=== PATIENT | female | born 1955 | race Caucasian/White ===

== ENCOUNTER 2018-03-04 01:04 | Outpatient (CLI) | payer BC, SELFPAY ==
--- NOTE | 2018-03-04 14:33 | DI.REPORT_ITS ---
SYMPTOMS/DIAGNOSIS: SCREENING, Z12.31 MAMMOGRAMS: Mammograms were interpreted according to the usual protocol including computer analysis with CAD system, tomosynthesis and C view imaging. Comparison is with the prior examinations. No masses or microcalcifications are seen. There is nothing to suggest malignancy. IMPRESSION: Negative mammogram. Routine screening is recommended. Category 1 , breast density B. MQSA ASSESSMENT OF FINDINGS: Negative. Category 1. Patient will receive a letter notifying them of these results. BI-RADS category B. There are scattered areas of fibroglandular density.
== END 2018-03-04 01:05 ==
PROVIDERS: PCP Nurse Practitioner Family; Visit Provider Nurse Practitioner Family
DX: Z12.31 Encounter for screening mammogram for malignant neoplasm of breast (principal)
CPT/HCPCS: 77063; 77067

== ENCOUNTER 2019-03-22 07:29 | Outpatient (CLI) | payer BC, SELFPAY ==
[2019-03-22 08:22] LABS: Abs Immature Grans 0.01 k/cumm (0.0-0.09); Absolute Basophil Count 0.01 k/cumm (0.0-0.2); Absolute Eosinophil Count 0.12 k/cumm (0.0-0.7); Absolute Monocyte Count 0.45 k/cumm (0.11-0.7); Absolute Neutrophil Count 3.03 k/cumm (1.2-6.7); Basophils % 0.2; Eosinophils % 2.1; HCT 38.3 % (36.0-46.0); HGB 12.4 g/dL (12.0-15.5); Immature Grans % 0.2; Lymphocytes % 37.8; Mean Corp. HGB Concentration 32.4 g/dL (32.0-36.0); Mean Corpuscular Hemoglobin 29.8 pg (27.0-33.0); Mean Corpuscular Volume 92.1 fL (80-95); Mean Platelet Volume 10.1 fL (8.0-11.0); Monocytes % 7.7; Platelet Count 271 x1000/uL (130-400); RBC 4.16 m/cumm (4.00-5.20); RBC Distribution Width 12.6 % (11.7-14.6); White Blood Cell Count 5.82 k/cumm (4.4-10.8)
[2019-03-22 09:17] LABS: Iron 63 ug/dL (50-175); Total Iron Binding Capacity 297 ug/dL (250-450); Transferrin Sat 21 % (15-50)
[2019-03-22 09:30] LABS: BUN 19 mg/dL (7-18); CREATININE 0.86 mg/dL (0.55-1.02); Calcium 8.5 mg/dL (8.5-10.1); Chloride 107 mmol/L (98-107); Glucose 92 mg/dL (70-100); Potassium 4.4 mmol/L (3.5-5.1); Sodium 143 mmol/L (136-145); TSH (W/Ref FT4) 0.68 uIU/mL (0.36-3.74)
[2019-04-03 14:56] LABS: Misc Referral (MAYO) See Comments
== END 2019-03-22 07:49 ==
PROVIDERS: PCP Nurse Practitioner Family; Visit Provider Nurse Practitioner Family
DX: Z00.00 Encounter for general adult medical examination without abnormal findings (principal); E78.5 Hyperlipidemia, unspecified; G47.62 Sleep related leg cramps; R51 Headache; R53.1 Weakness; R06.02 Shortness of breath; M54.5 Low back pain; R00.2 Palpitations; R06.00 Dyspnea, unspecified; R42 Dizziness and giddiness
CPT/HCPCS: 36415; 80048; 83825; 83540; 83550; 83735; 84443; 85025

== ENCOUNTER 2019-04-17 00:25 | Outpatient (CLI) | payer BC, SELFPAY ==
--- NOTE | 2019-04-17 10:40 | DI.MAMMO_ITS ---
EXAM: MAMMO SCREENING CLINICAL HISTORY: SCREENING, Z12.31, PREVENTATIVE CARE, Z00.00. TECHNIQUE: Mammograms were interpreted according to the usual protocol including computer analysis w ith CAD system, tomosynthesis and C-view imaging. COMPARISON: No exams were available for comparison FINDINGS: The breast tissue is heterogeneously radiodense which limits the sensitivity of the study. There is n o dominant mass. There are no suspicious calcifications. IMPRESSION: No evidence of malignancy, Category 1. Breast density Category C. BI-RADS Cat 1 - Negative Breast Density - Category C - Heterogeneously dense
== END 2019-04-17 00:45 ==
PROVIDERS: PCP Nurse Practitioner Family; Visit Provider Nurse Practitioner Family
DX: Z00.00 Encounter for general adult medical examination without abnormal findings (principal); Z12.31 Encounter for screening mammogram for malignant neoplasm of breast
CPT/HCPCS: 77063; 77067

== ENCOUNTER 2019-06-12 06:13 | Day surgery (SDC) | payer BC, SELFPAY ==
[2019-06-12 06:33] VITALS: BP 114/71; PULSE 67; RESP 16; TEMP 36.6; O2SAT 100
--- NOTE | 2019-06-12 06:33 | W.COLOREPORT ---
Date of service: 06/12/19 Time of Service: 07:37 Colonoscopy Report Date of procedure: 06/12/19 Pre-op diagnosis general: Colon Cancer Screening Post-op diagnosis procedure note: other (Colorectal polyps) Procedure: Colonoscopy with polypectomy by cold forceps Surgeon: Sophia Cordero Anesthesia proc note operative: other (General/ ASA 2/Celeste Yanez, CHICHI) Estimated blood loss (mL): 3 Pathology: other (Rectal polyps x3) Complications: None Disposition: same day Indications: Mrs. Anderson is a pleasant 63 year old female seen in the office for a screening colonoscopy. Her last Colonoscopy was over 10 years ago and was normal. Risks, benefits and complications have been reviewed. Complications include but are not limited to bleeding, pain, perforation, missed small lesion/polyp, sore throat, aspiration and adverse reaction to the medications. Questions were entertained and answered to their satisfaction and they wished to proceed. No guarantees were given or implied. Prep: Miralax/Dulcolax Procedure Start Time: :37 Procedure End Time: 08:06 Retraction Time: 21 minutes Findings: 3 sessile polyps in the rectum. Procedure Description: After informed consent was obtained the patient was taken to the procedure room and placed in a left decubitous position. Monitors were applied and a time out was done. The patients name, date of , procedure, allergies to medications and metal in their body was reviewed. The patient was then sedated. Once sedated and comfortable a rectal exam was done. External exam was normal. Internal exam revealed a normal sphincter tone and no palpable masses. The scope was then introduced and retro-flexed. No internal hemorrhoids, masses or polyps were identified on retro-flexion. The scope was then advanced to the cecum without difficulty. The TI and appendiceal orifice were identified. The prep was good. The scope was then slowly retracted over 21 minutes back into the rectum. Polyps were removed with cold forceps in the rectum x3. There were no Diverticula noted. The scope was removed and the patient was woken up and taken back to Same day surgery in stable condition. The patient tolerated the procedure well and there were no immediate complications. Follow up: The patient should follow up in 3-5 years unless they develop changes in bowel habits or other new gastrointestinal complaints.
--- NOTE | 2019-06-12 06:35 | W.PM.DSUDISC ---
Discharge Plan Disposition Patient Disposition: HOME Condition: Good Discharge Details Reason For Visit: Colon Cancer Screening Attending Provider: Sophia Cordero Primary Care Provider: Gisela Puri Home Meds and New Rx's Prescriptions: Discontinued polyethylene glycol 3350 17 gram/dose powder 238 g PO ONCE Qty: 238 RF: 0 bisacodyl [Dulcolax (bisacodyl)] 5 mg tablet,delayed release (DR/EC) 5 mg PO ONCE Qty: 4 RF: 0 Discharge Instructions Instructions: Colonoscopy (DC), Colorectal Polyps (DC) Additional Instructions: Findings: 3 small polyps Follow up: 3-5 years depending on final pathology Please call if you develop: fevers >101.5 Nausea or Vomiting Abdominal pain that is not transient DAY SURGERY UNIT POST ENDOSCOPY INSTRUCTIONS 1. Because there will be medication in your system for the next 24 hours, you may feel a little sleepy. Your coordination will be affected. Therefore: a. Do not drive or operate dangerous equipment for 24 hours. b. Do not drink alcohol beverages for 24 hours (not even beer). c. Plan to go home and rest for the day. 2. Generally there are no restrictions on your activity after a day or so has gone by, but you may feel a bit fatigued for a few days. 3 After you arrive home you may have a light meal and return to a normal diet as you can tolerate it without feeling sick to your stomach. 4. After surgery, you may feel pain or discomfort. This should be only transient, but if it persists please contact your doctor. 5. If there are any questions regarding the findings of your procedure, please feel free to contact your doctor. 6. If you are unable to contact your doctor with a problem, contact the hospital at [phone]. 7. Continue all your regular medications unless directed otherwise. I understand the above instructions and have no questions. Signature of Patient or Responsible Adult Escort Date/Time Name of Responsible Adult Escort Signature of Nurse Date/Time Activity:: Activity as Tolerated Diet:: As Tolerated Discharge Orders Discharge Orders: Discharge Order (Routine); Ordered 06/12/19 Ordered By: Sophia Cordero DS: Diagnosis Discharge Diagnosis (1) S/P colonoscopy: Status: Acute (2) Colorectal polyps: Status: Acute
[2019-06-12] MEDS: Lactated Ringers 1,000 ML 80 ML IV (07:19)
--- NOTE | 2019-06-12 08:00 | BOWEL_PTH ---
PATIENT: Britany Anderson LOC: [facility] U#:[id number] AGE/SX: 63/F ROOM: RE06/12/[address]: Sophia Cordero MD : 1955 BED: DIS: 06/12/2019 SPEC #: [id number] RECD: 06/12/19 11:32 STATUS: JOSIAH REQ #: [id number] LAURA: 06/12/19 08:[address]: Sophia Cordero DEPT: Surgical Specimen RECD BY: Madalyn Ronquillo ENTERED: 06/12/19 11:32 SP TYPE: Bowel OTHR DR: Gisela Puri Tissues: 1 - BIOPSY BOWEL Procedures: GROSS AND MICRO LEVEL 4 Comments: [id number]
[2019-06-12 08:45] VITALS: BP 94/51; PULSE 57; RESP 18; TEMP 36.3; O2SAT 99
== END 2019-06-12 09:15 | disposition home or self-care (01) ==
PROVIDERS: PCP Nurse Practitioner Family; Visit Provider Surgery
PROC: 0DJD8ZZ Inspection of Lower Intestinal Tract, Via Natural or Artificial Opening Endoscopic (ICD-10-PCS; CPT 45378; principal; 2019-06-12 07:30)
DX: Z12.11 Encounter for screening for malignant neoplasm of colon (principal); K62.1 Rectal polyp
CPT/HCPCS: 45380; 88305

== ENCOUNTER 2020-01-24 12:47 | Outpatient (REF) | payer BC, SELFPAY ==
[2020-01-24 22:02] LABS: HGB 12.9 g/dL (12.0-15.5); Mean Corp. HGB Concentration 32.3 g/dL (32.0-36.0); Mean Corpuscular Hemoglobin 29.7 pg (27.0-33.0); Mean Corpuscular Volume 92.2 fL (80-95); Mean Platelet Volume 10.8 fL (8.0-11.0); Platelet Count 276 x1000/uL (130-400); RBC 4.34 m/cumm (4.00-5.20); RBC Distribution Width 12.9 % (11.7-14.6)
[2020-01-24 22:15] LABS: ALT 20 U/L (14-59); AST 14 U/L (15-37); Albumin 3.8 g/dL (3.4-5.0); Alkaline Phosphatase 54 U/L (46-116); Anion Gap 8.2 mmol/L (3-11); BUN 16 mg/dL (7-18); Bilirubin, Total 0.3 mg/dL (0.2-1.0); CO2 27.8 mmol/L (21.0-32.0); CREATININE 0.95 mg/dL (0.55-1.02); Calcium 9.2 mg/dL (8.5-10.1); Calculated LDL 167 mg/dL (<100); Chloride 105 mmol/L (98-107); Cholesterol 248 mg/dL (<200); Estimated GFR 59.41 (mL/min/1.73m2); Glucose 99 mg/dL (74-106); HDL Cholesterol 63 mg/dL (40-60); Potassium 5.1 mmol/L (3.5-5.1); Sodium 141 mmol/L (136-145); Total Protein 6.6 g/dL (6.4-8.2); Triglyceride 92 mg/dL (<150)
== END 2020-01-24 13:07 ==
LOC: NCHCN 12:47
PROVIDERS: PCP Nurse Practitioner Family; Visit Provider Nurse Practitioner Family
DX: Z00.00 Encounter for general adult medical examination without abnormal findings (principal); E78.5 Hyperlipidemia, unspecified
CPT/HCPCS: 80053; 80061; 85027

== ENCOUNTER 2020-03-15 15:39 | Outpatient (REF) | payer BC, SELFPAY ==
[2020-03-15 22:28] LABS: Abs Immature Grans 0.02 10^3/uL (0.0-0.06); Absolute Basophil Count 0.02 10^3/uL (0.0-0.2); Absolute Eosinophil Count 0.08 10^3/uL (0.0-0.7); Absolute Monocyte Count 0.38 10^3/uL (0.1-0.8); Basophils % 0.3; Eosinophils % 1.3; HCT 43.6 % (36.0-46.0); Immature Grans % 0.3; Lymphocytes % 37.5; MCH 29.3 pg (27.0-33.0); MCHC 32.1 % (32.0-36.0); MCV 91.2 fL (80-95); MPV 10.5 fL (8.0-11.0); Monocytes % 5.9; Neutrophils % 54.7; Nucleated RBC 0 %; Platelet Count 314 10^3/uL (130-400); RBC 4.78 10^6/uL (3.93-5.22); RDW 12.1 % (11.7-14.6); RDW-SD 40.5 fL
[2020-03-15 22:32] LABS: Iron 100 ug/dL (50-170); Total Iron Binding Capacity 347 ug/dL (250-450); Transferrin Sat 29 % (15-50)
[2020-03-15 23:09] LABS: ALT 17 U/L (14-59); AST 16 U/L (15-37); Albumin 4.3 g/dL (3.4-5.0); Alkaline Phosphatase 65 U/L (46-116); Anion Gap 9.3 mmol/L (3-11); BUN 15 mg/dL (7-18); Bilirubin, Total 0.4 mg/dL (0.2-1.0); CO2 28.7 mmol/L (21.0-32.0); CREATININE 0.77 mg/dL (0.55-1.02); Calcium 9.4 mg/dL (8.5-10.1); Chloride 102 mmol/L (98-107); Glucose 90 mg/dL (74-106); Magnesium 2.2 mg/dL (1.8-2.4); Potassium 4.3 mmol/L (3.5-5.1); Sodium 140 mmol/L (136-145); TSH 0.67 uIU/mL (0.36-3.74); Total Protein 7.5 g/dL (6.4-8.2); Vitamin B12 369 pg/mL (193-986)
[2020-03-15 23:26] LABS: ESR 19 mm/hr (0-30)
[2020-03-15 23:34] LABS: C-Reactive Protein 0.16 mg/dL (0.0-0.3); FREE T4 1.03 ng/dL (0.76-1.46)
[2020-03-17 17:49] LABS: T3,Free 3.2 pg/mL (2.8-5.3)
[2020-03-18 14:41] LABS: ANA Interpretation Positive (Negative); ANA Titer Pattern 1:160 Homogeneous
== END 2020-03-15 15:59 ==
LOC: NCHCN 15:39
PROVIDERS: PCP Nurse Practitioner Family; Visit Provider Nurse Practitioner Family
DX: R42 Dizziness and giddiness (principal); R20.2 Paresthesia of skin; R53.1 Weakness
CPT/HCPCS: 80053; 85652; 82607; 83540; 83550; 83735; 84439; 84443; 84481; 85025; 86038; 86140

== ENCOUNTER 2020-03-27 17:08 | Outpatient (REF) | payer BC, SELFPAY ==
[2020-04-02 13:20] LABS: dsDNA Ab, IgG <12.3 IU/mL (<30.0)
[2020-04-05 16:07] LABS: SS-A Antibody 1.6 Units (<20.0); SS-B (La) Ab, IgG 1.4 Units (<20.0); Sm (Smith) Ab, IgG 1.7 Units (<20.0)
== END 2020-03-27 17:28 ==
LOC: NCHCN 17:08
PROVIDERS: PCP Nurse Practitioner Family; Visit Provider Nurse Practitioner Family
DX: R76.0 Raised antibody titer (principal)
CPT/HCPCS: 86225; 86235

== ENCOUNTER 2020-04-18 05:45 | Emergency (ER) | payer BC, SELFPAY ==
[2020-04-18 05:52] VITALS: BP 127/87; PULSE 99; RESP 16; TEMP 36.5; O2SAT 98
--- NOTE | 2020-04-18 06:04 | ED.GENADUL_ITS ---
Discharge Plan Disposition Patient Disposition: HOME Condition: Good Discharge Details Clinical Impression: Insomnia, Anxiety Primary Care Provider: Gisela Puri ED Provider: Chad Jerry Home Meds and New Rx's Prescriptions: No Action No Known Home Meds RF: 0 Discharge Instructions Additional Instructions: You may try clnl-[id number] medication for sleep like diphenhydramine or melatonin. Otherwise, you should discuss your problems with insomnia and the anxiety related to your recent diagnosis with primary care. They would be who should be managing prescription medications for sleep or anxiety if needed. Referrals: Gisela Puri [Primary Care Provider] - Medical Decision Making I did review the notes from her neurology visit. 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 Even neurology's note documented how overwhelming this seemed to patient. Unfortunately, prescribing anxiolytics or sleeping medication should be something primary care is involved in. She goes to [facility]. She has not spoken to them since her diagnosis with neurology. I discussed the need for her to do this. She may try tlpu-pdq-tixjmey medications such as melatonin or diphenhydramine for sleep. If she wants prescription medication this really should be handled through primary care. Return to ED for fever, cough, unsafe feelings, chest pain, other concerns. Medical Records Medical records reviewed: Yes I reviewed the patient's medical records. HPI General Mode of arrival: ambulatory . Date/Time Provider Initiated Documentation: 04/18/20 05:53 . Limitations to Documentation: no limitations . Information obtained by: patient, RN notes reviewed and old records reviewed . HPI Narrative: Patient presents to ED with complaint of insomnia and anxiety since receiving ba d news from neurology on the . She has been very concerned about this diagnosis. She was unable to sleep last night at all. She feels anxious and short of breath but denies any fever, cough, chest pain, vomiting. She did not call primary care since her visit with neurology. She has not tried anything [id number]. She came to ED this morning hoping to have something prescribed for sleep. Related Data Home Medications Medication Instructions Recorded Confirmed Unknown [No Known Home Meds] 04/18/20 04/18/20 Allergies Allergy/AdvReac Type Severity Reaction Status Date / Time No Known Allergies Allergy Unverified 04/15/20 11:13 General Stated Complaint: Anxiety KEELY: 5 Review of Systems Constitutional Constitutional: Denies chills and Denies fever(s) Cardiovascular Cardiovascular: Denies chest pain and Reports dyspnea Respiratory Respiratory: Denies cough and Reports dyspnea Psychiatric Psychiatric: Reports anxiety [facility] Medical History Chronic sinusitis Dyspepsia Frequent headaches Hip pain, bilateral History of postoperative nausea and vomiting Hyperlipidemia Insomnia Low back pain Nocturnal leg cramps Pain of left thumb Palpitations Seasonal allergies TMJ tenderness Surgical History History of discectomy neck S/P colonoscopy (~06/12/19) normal colo >10 years ago Family History Mother Diabetes Rheumatoid arthritis Father Heart disease Brother Heart disease Brother Diabetes Social History Smoking/Tobacco Use Status: Never Alcohol Intake: current Alcohol Intake frequency: a few times a week Alcohol type: wine and hard liquor Drug use: Never Substance use type: does not use Household members: spouse Housing: house current occupation: cnc lathe machinist Pets and animals: Yes Pets and animals: dog(s) Current gender identity: female What is your relationship status?: Panel score (0-1 are the most socially isolated patients): 1 What type of physical activity do you participate in: none Seatbelt use: always Do you feel safe at home: Yes Do you feel safe in your relationship?: Yes Exam Narrative Exam Narrative: Vitals: Afebrile with normal vitals normal room air pulse ox. Const: WDWN female in NAD. HEENT: NC/AT. Normal facial exam. Eyes: Normal conjunctiva and sclera. Neck: Supple. Trachea midline. Lungs: Normal respiratory effort. Lungs are clear. Cor: RRR without murmur/gallop. Neuro: A+O x 3. Normal speech, mentation. No gross motor or sensory deficit. Psych: Appears outwardly calm but describes anxiety and insomnia regarding potential diagnosis she received this week. Course Vital Signs Vital signs: Vital Signs Temperature 97.7 F 04/18/20 05:52 Pulse 99 H 04/18/20 05:52 Respiratory Rate 16 04/18/20 05:52 Blood Pressure 127/87 04/18/20 05:52 Pulse Oximetry 98 04/18/20 05:52 Temperature 97.7 F 04/18/20 05:52 Temperature Source Skin 04/18/20 05:52 Pulse 99 H 04/18/20 05:52 Respiratory Rate 16 04/18/20 05:52 Respiratory Effort Non-Labored 04/18/20 05:58 Blood Pressure 127/87 04/18/20 05:52 Blood Pressure Position Sitting 04/18/20 05:52 Pulse Oximetry 98 04/18/20 05:52 Oxygen Delivery Method Room Air 04/18/20 05:52 Oxygen Flow Rate 0 04/18/20 05:52 Pain Level 0 04/18/20 05:52
== END 2020-04-18 06:10 | disposition home or self-care (01) ==
PROVIDERS: Emergency Provider Emergency Medicine; PCP Nurse Practitioner Family
DX: G47.09 Other insomnia (principal); F41.9 Anxiety disorder, unspecified
CPT/HCPCS: 99282; 99283

== ENCOUNTER 2020-05-20 18:57 | Outpatient (REF) | payer BC, SELFPAY ==
[2020-05-22 11:31] LABS: Lyme Ab w Rflx to Lyme Confirm Negative (Negative)
== END 2020-05-20 19:17 ==
LOC: NCHCN 18:57
PROVIDERS: PCP Nurse Practitioner Family; Visit Provider Internal Medicine
DX: R53.1 Weakness (principal)
CPT/HCPCS: 86618

== ENCOUNTER 2020-08-22 13:22 | Outpatient (REF) | payer BC, SELFPAY ==
[2020-08-22 20:21] LABS: COVID-19 RT-PCR UVMMC Result Negative (Negative)
== END 2020-08-22 13:42 ==
LOC: NCHCN 13:22
PROVIDERS: PCP Nurse Practitioner Family; Visit Provider Nurse Practitioner Family
DX: Z20.822 Contact with and (suspected) exposure to COVID-19 (principal)
CPT/HCPCS: U0003

== ENCOUNTER 2020-10-14 15:03 | Outpatient (REF) | payer BC, SELFPAY ==
[2020-10-15 15:15] LABS: COVID-19 RT-PCR UVMMC Result Negative (Negative)
== END 2020-10-14 15:04 | disposition home or self-care (01) ==
LOC: NCHCN 15:03
PROVIDERS: PCP Nurse Practitioner Family; Visit Provider Nurse Practitioner Family
DX: Z20.822 Contact with and (suspected) exposure to COVID-19 (principal)
CPT/HCPCS: U0003

== ENCOUNTER 2020-11-25 16:20 | Outpatient (REF) | payer BC, SELFPAY ==
[2020-11-25 21:16] LABS: Anion Gap 10.1 mmol/L (3-11); BUN 19 mg/dL (7-18); CO2 27.9 mmol/L (21.0-32.0); CREATININE 0.7 mg/dL (0.55-1.02); Calcium 8.9 mg/dL (8.5-10.1); Chloride 105 mmol/L (98-107); Glucose 88 mg/dL (74-106); Magnesium 1.9 mg/dL (1.8-2.4); Potassium 4.2 mmol/L (3.5-5.1); Sodium 143 mmol/L (136-145); TSH (W/Ref FT4) 0.36 uIU/mL (0.36-3.74)
== END 2020-11-25 16:21 | disposition home or self-care (01) ==
LOC: NCHCN 16:20
PROVIDERS: PCP Nurse Practitioner Family; Visit Provider Nurse Practitioner Family
DX: Z00.00 Encounter for general adult medical examination without abnormal findings (principal); E78.5 Hyperlipidemia, unspecified; G47.62 Sleep related leg cramps; R42 Dizziness and giddiness; R00.2 Palpitations; F41.8 Other specified anxiety disorders
CPT/HCPCS: 80048; 83735; 84443

== ENCOUNTER 2020-12-04 02:10 | Outpatient (CLI) | payer BC, SELFPAY ==
--- NOTE | 2020-12-04 09:25 | DI.MAMMO_ITS ---
Exam(s) MAMMO SCREENING EXAM: MAMMO SCREENING CLINICAL HISTORY: SCREENING, Z12.39. TECHNIQUE: Bilateral full field digital CC and MLO mammographic images were obtained with 3D tomosyn thesis and utilizing computer aided detection (CAD). COMPARISON: Prior mammograms dating back to 1011, the most recent being March 2019. FINDINGS: Asymmetric density in left breast is unchanged from prior studies. No new significant left breast fi ndings In the right breast there are asymmetric densities both medially and laterally which are somewhat mor e evident on prior studies. Spot compression view and ultrasound recommended. No malignant-appearing microcalcification groups in this region or elsewhere in either breast. There is no significant architectural distortion nor skin thickening-retraction. IMPRESSION: 1. No radiographic evidence of malignancy in left breast. 2. Right breast asymmetric nodular densities both medial and laterally. Spot compression CC views vinayak th medial and laterally recommended. Also recommend complete right breast ultrasound. BI-RADS Category 0 - Assessment Incomplete: Need additional imaging evaluation Breast Density - Category B - Scattered areas of fibroglandular density Breast density Category C or D implies that the patient has dense breast tissue. Dense breast tissue can make it harder to find cancer on a mammogram. Dense breast tissue is also associated with an incr eased risk of breast cancer. This information about the result of the mammogram report was provided to the patient to raise their awareness. Use this report when you speak with the patient about their risks for breast cancer, which includes their family history. At that time, you may recommend additional screening tests (Ultrasoun d or MRI) as these tests may add significant information. A negative radiographic report should not delay biopsy if a dominant or clinically suspicious mass is present. Up to ten percent of cancers are not identified on mammography. A negative report may reinforce clinical impression. Adenosis and dense breasts may obscure an underlying neoplasm. False positive reports average 6 to 10%. Patient will receive a letter notifying them of these results.
== END 2020-12-04 02:30 ==
PROVIDERS: PCP Nurse Practitioner Family; Visit Provider Nurse Practitioner Family
DX: Z12.31 Encounter for screening mammogram for malignant neoplasm of breast (principal); R92.8 Other abnormal and inconclusive findings on diagnostic imaging of breast
CPT/HCPCS: 77063; 77067

== ENCOUNTER 2020-12-11 01:12 | Outpatient (CLI) | payer BC, SELFPAY ==
--- NOTE | 2020-12-11 | DI.US_ITS ---
Exam(s) MG MAMMO SCREEN CALL BACK UNI US BREAST RT COMPLETE EXAM: MG MAMMO SCREEN CALL BACK UNI RIGHT AND COMPLETE RIGHT BREAST ULTRASOUND CLINICAL HISTORY: F/U MAMMO, RT BREAST ASYMMETRIC DENSITIES. TECHNIQUE: Unilateral spot mammographic images OF THE RIGHT BREAST were obtained with 3D tomosynthes is and utilizing computer aided detection (CAD). . RIGHT COMPLETE breast Ultrasound was also performed. COMPARISON: Prior mammograms were reviewed. This additional imaging was performed due to findings described on the recent screening mammogram of 12/04/2020. Prior ultrasound 2017 was reviewed FINDINGS: Additional mammographic views performed today dissipate the nodular density medially in the right kyle ast. With respect to the nodular density laterally in the right breast it appears to be smaller on s pot compression view but does not completely dissipate We therefore proceeded with complete right breast ultrasound today. Ultrasound performed today reveals no significant findings in the medial quadrants. At 7 o'clock position there is a 3 x 3 millimeter finding which has appearance of a small hemorrhagic microcyst. At the 8 o'clock position there is a well-defined wider than taller 5 by 4 millimeter finding which i s probably hemorrhagic microcyst. At 10 o'clock position there is a 5 x 3 millimeter finding which is also probably hemorrhagic microcy st. There are no focal findings in the immediate retroareolar region. Right axilla is negative for significant adenopathy. IMPRESSION: Three findings as described above in the right breast. Appropriate follow-up is repeat right breast ultrasound in 3 months. At that time this patient should also undergo complete ultrasound examination of the opposite-breast.. The patient was informed of these findings and recommendations prior to leaving the department today. BI-RADS Category 3 - 3 month - Probably Benign Finding: Recommend follow-up bilateral breast ULTRASOU ND in 3 months Breast Density - Category C - Heterogeneously dense Breast density Category C or D implies that the patient has dense breast tissue. Dense breast tissue can make it harder to find cancer on a mammogram. Dense breast tissue is also associated with an incr eased risk of breast cancer. This information about the result of the mammogram report was provided to the patient to raise their awareness. Use this report when you speak with the patient about their risks for breast cancer, which includes their family history. At that time, you may recommend additional screening tests (Ultrasoun d or MRI) as these tests may add significant information. A negative radiographic report should not delay biopsy if a dominant or clinically suspicious mass is present. Up to ten percent of cancers are not identified on mammography. A negative report may reinforce clinical impression. Adenosis and dense breasts may obscure an underlying neoplasm. False positive reports average 6 to 10%. Patient will receive a letter notifying them of these results. At the
== END 2020-12-11 01:32 ==
PROVIDERS: PCP Nurse Practitioner Family; Visit Provider Nurse Practitioner Family
DX: Z13.21 Encounter for screening for nutritional disorder (principal); R92.8 Other abnormal and inconclusive findings on diagnostic imaging of breast; N60.11 Diffuse cystic mastopathy of right breast
CPT/HCPCS: 76642; 77063; 77067

== ENCOUNTER 2022-02-20 15:07 | Outpatient (REF) | payer BC, SELFPAY ==
--- NOTE | 2022-02-20 10:45 | PAPFT_PTH ---
PATIENT: Britany Anderson LOC: [facility]#:[id number] AGE/SX: 66/F ROOM: RE02/20/[address]: Gisela Puri : 1955 BED: DIS: 02/20/2022 SPEC #: [id number] RECD: 02/20/22 17:26 STATUS: JOSIAH REAndie #: [id number] LAURA: 02/20/22 10:[address]: Gisela Puri DEPT: [facility] Cytology RECD BY: Joan Russell Tissues: 1 - CX/ENDOCX FOR PAP SMEARS Procedures: PAP THIN PREP/UVM Screening HPV DNA PROBE Comments: [id number]
[2022-02-20 16:08] LABS: Abs Immature Grans 0.01 10^3/uL (0.0-0.06); Absolute Basophil Count 0.02 10^3/uL (0.0-0.2); Absolute Eosinophil Count 0.07 10^3/uL (0.0-0.7); Absolute Lymphocyte Count 2.59 10^3/uL (1.2-3.4); Absolute Neutrophil Count 3.26 10^3/uL (1.2-6.7); Basophils % 0.3; Eosinophils % 1.1; HCT 39.9 % (36.0-46.0); Immature Grans % 0.2; Lymphocytes % 40.2; MCH 29.6 pg (27.0-33.0); MCHC 32.6 % (32.0-36.0); MCV 91 fL (80-95); MPV 10.4 fL (8.0-11.0); Monocytes % 7.8; Neutrophils % 50.4; Platelet Count 284 10^3/uL (130-400); RBC 4.39 10^6/uL (3.93-5.22); RDW 12.2 % (11.7-14.6); RDW-SD 40.3 fL; WBC 6.45 10^3/uL (4.4-10.8)
[2022-02-20 16:41] LABS: Anion Gap 7.8 mmol/L (3-11); BUN 14 mg/dL (7-18); CO2 28.2 mmol/L (21.0-32.0); CREATININE 0.8 mg/dL (0.55-1.02); Calcium 8.9 mg/dL (8.5-10.1); Calculated LDL 183 mg/dL (<100); Chloride 105 mmol/L (98-107); Cholesterol 265 mg/dL (<200); Ferritin 206 ng/mL (8-252); Glucose 93 mg/dL (74-106); HDL Cholesterol 67 mg/dL (40-60); Magnesium 1.9 mg/dL (1.8-2.4); Potassium 4.7 mmol/L (3.5-5.1); Sodium 141 mmol/L (136-145); Triglyceride 75 mg/dL (<150)
[2022-02-20 17:30] LABS: Iron 97 ug/dL (50-170); Total Iron Binding Capacity 335 ug/dL (250-450); Transferrin Sat 29 % (15-50)
== END 2022-02-20 15:08 | disposition home or self-care (01) ==
LOC: NCHCN 15:07
PROVIDERS: PCP Nurse Practitioner Family; Visit Provider Nurse Practitioner Family
DX: Z00.00 Encounter for general adult medical examination without abnormal findings (principal); G47.62 Sleep related leg cramps; R42 Dizziness and giddiness; G20 Parkinson's disease; F41.8 Other specified anxiety disorders; R00.2 Palpitations; Z12.4 Encounter for screening for malignant neoplasm of cervix; Z01.419 Encounter for gynecological examination (general) (routine) without abnormal findings; Z13.220 Encounter for screening for lipoid disorders; Z11.51 Encounter for screening for human papillomavirus (HPV)
CPT/HCPCS: 80048; 80061; 88142; 82728; 83540; 83550; 83735; 84443; 85025; 87624

== ENCOUNTER → 2022-04-24 00:28 | Outpatient (CLI) | payer BC, SELFPAY ==
--- NOTE | 2022-04-24 11:23 | DI.DEXA_ITS ---
Exam(s) XR DEXA BONE DENSITY W/WO GUILHERME EXAM: XR DEXA BONE DENSITY W/WO GUILHERME CLINICAL HISTORY: ASYMPTOMATIC POSTMENOPAUSAL STATE, Z78.0 TECHNIQUE: COMPARISON: No exams were available for comparison FINDINGS: DEXA scan was performed according to the usual protocol. Please see the accompanying data sheets. Findings for left hip scanning are T-score -1.1 with left femoral neck T-score -2.6. Lumbar spine scanning shows T-score -2.5. Left forearm scanning shows T-score -2.3. IMPRESSION: Measurements are consistent with osteoporosis according to the WHO criteria. The lateral vertebral scanogram shows no evidence of a vertebral compression fracture. RADIATION DOSE DELIVERED: Total DLP
--- NOTE | 2022-04-24 11:45 | DI.MAMMO_ITS ---
Exam(s) MAMMO SCREENING EXAM: MAMMO SCREENING CLINICAL HISTORY: SCREENING, 12.39 TECHNIQUE: Mammograms were interpreted according to the usual protocol including computer analysis w Er[employer] CAD system, tomosynthesis and C-view imaging. COMPARISON: FINDINGS: The breasts are with call heterogeneously dense. No dominant mass or clumped microcalcification iden tified in either breast. The current examination is compared with previous examinations including Ma y 2020 and there has been no gross interval change in appearance in comparison with the prior studies . IMPRESSION: No specific evidence of malignancy at this time. Routine screening examinations are suggested at yea rly intervals in this age group according to the ACS ACR guidelines. BI-RADS Category 1 - Negative Breast Density - Category C - Heterogeneously dense
== END ==
PROVIDERS: PCP Nurse Practitioner Family; Visit Provider Nurse Practitioner Family
DX: Z13.820 Encounter for screening for osteoporosis (principal); M81.0 Age-related osteoporosis without current pathological fracture; Z12.31 Encounter for screening mammogram for malignant neoplasm of breast; R92.8 Other abnormal and inconclusive findings on diagnostic imaging of breast
CPT/HCPCS: 77063; 77067; 77080

== ENCOUNTER 2023-02-22 16:44 | Outpatient (REF) | payer BC, SELFPAY ==
[2023-02-22 22:03] LABS: Vitamin D 25 Total 18.7 ng/mL (30-100)
== END 2023-02-22 16:45 | disposition home or self-care (01) ==
LOC: NCHCN 16:44
PROVIDERS: PCP Nurse Practitioner Family; Visit Provider Nurse Practitioner Family
DX: M81.0 Age-related osteoporosis without current pathological fracture (principal); R42 Dizziness and giddiness; M54.59 Other low back pain
CPT/HCPCS: 82306

== ENCOUNTER → 2023-04-27 00:38 | Outpatient (CLI) | payer BC, SELFPAY ==
--- NOTE | 2023-04-27 | DI.MAMMO_ITS ---
Exam(s) MAMMO SCREENING EXAM: MAMMO SCREENING CLINICAL HISTORY: SCREENING MAMMO FOR BREAST CANCER Z12.39 TECHNIQUE: Mammograms were interpreted according to the usual protocol including computer analysis w [employer] CAD system, tomosynthesis and C-view imaging. COMPARISON: 2012 through 2021 FINDINGS: The breasts are composed of heterogeneously dense fibroglandular densities, Breast Density category C . No suspicious masses or suspicious microcalcifications are seen. No skin thickening or abnormal axillary lymph nodes are seen. There has been no significant change from prior exams. IMPRESSION: BI-RADS Category 1, Negative mammogram. Yearly screening mammography is recommended. Breast Density Category C, heterogeneously Dense. The mammogram demonstrates the patient's breast tissue is dense. Dense breast tissue is very common a nd is not abnormal but dense breast tissue can make it harder to find cancer on a mammogram. Also, de nse breast tissue may increase breast cancer risk. This information about the result of the mammogram report was provided to the patient to raise their awareness. Use this report when you speak with the patient about their risks for breast cancer, which includes their family history. At that time, you may recommend additional screening tests (Ultrasound or MRI) as they might be useful based on their r isk. A negative radiographic report should not delay biopsy if a dominant or clinically suspicious mass is present. Up to ten percent of cancers are not identified on mammography. A negative report may reinforce clinical impression. Adenosis and dense breasts may obscure an underlying neoplasm. False positive reports average 6 to 10%.
== END ==
PROVIDERS: PCP Nurse Practitioner Family; Visit Provider Nurse Practitioner Family
DX: Z12.31 Encounter for screening mammogram for malignant neoplasm of breast (principal)
CPT/HCPCS: 77063; 77067

== ENCOUNTER 2024-04-28 00:40 | Outpatient (CLI) | payer BC, SELFPAY ==
--- NOTE | 2024-04-28 | DI.MAMMO_ITS ---
Exam(s) MAMMO SCREENING EXAM: MAMMO SCREENING CLINICAL HISTORY: SCREENING, Z12.31. TECHNIQUE: Bilateral full field digital CC and MLO mammographic images were obtained with 3D tomosyn thesis and utilizing computer aided detection (CAD). COMPARISON: Prior mammograms were reviewed. Prior ultrasound 2020 was reviewed. FINDINGS: In the central right breast there is noncalcified well-defined 8 by 7 mm nodule located 5 cm in from the nipple on the CC view, not previously evident. This is approximately at the 12 o'clock position. Another slightly smaller nodule is seen in the right breast on the CC view 7 cm in from the nipple, this measuring approximately 5 x 5 mm. Another smaller lobulated noncalcified nodule seen medially in left breast is noted 8 cm in from the nipple. In the opposite-left breast there are few small nodular densities, the largest located 4 cm lateral f rom the nipple and measuring 4 x 4 mm. There are no new spiculated masses nor new malignant appearing microcalcification groups. There is no significant architectural distortion nor skin thickening-retraction. IMPRESSION: Bilateral nodules as described above, the largest being at 12 o'clock position of the right breast me asuring approximately 8 x 7 mm. Bilateral spot compression views and bilateral breast ultrasound rec ommended. BI-RADS Category 0 - Incomplete: Need additional imaging evaluation Breast Density - Category B - Scattered areas of fibroglandular density Breast density Category C or D implies that the patient has dense breast tissue. Dense breast tissue can make it harder to find cancer on a mammogram. Dense breast tissue is also associated with an incr eased risk of breast cancer. This information about the result of the mammogram report was provided to the patient to raise their awareness. Use this report when you speak with the patient about their risks for breast cancer, which includes their family history. At that time, you may recommend additional screening tests (Ultrasoun d or MRI) as these tests may add significant information. A negative radiographic report should not delay biopsy if a dominant or clinically suspicious mass is present. Up to ten percent of cancers are not identified on mammography. A negative report may reinforce clinical impression. Adenosis and dense breasts may obscure an underlying neoplasm. False positive reports average 6 to 10%. Patient will receive a letter notifying them of these results.
== END 2024-04-28 01:00 ==
LOC: DI 00:41
PROVIDERS: PCP Nurse Practitioner Family; Visit Provider Nurse Practitioner Family
DX: Z12.31 Encounter for screening mammogram for malignant neoplasm of breast (principal); R92.8 Other abnormal and inconclusive findings on diagnostic imaging of breast
CPT/HCPCS: 77063; 77067

== ENCOUNTER 2024-05-09 01:37 | Outpatient (CLI) | payer BC, SELFPAY ==
--- NOTE | 2024-05-09 09:21 | DI.MAMMO_ITS ---
Exam(s) US BREAST RT LIMITED US BREAST LT LIMITED MG MAMMO SCREEN CALL BACK BI EXAM: MG MAMMO SCREEN CALL BACK BI and bilateral U/S breast limited. CLINICAL HISTORY: F/U MAMMO, EMRRICK NODULES, R92.8. TECHNIQUE: Craniocaudal and mediolateral oblique Full Field Digital Mammography views of the bilater al breast with Computer Aided Diagnosis followed by Tomosynthesis and bilateral breast ultrasound. COMPARISON: Comparison is made with prior examinations. FINDINGS: Mammography/Tomosynthesis: Masses/Architectural Distortion: In the left breast the well-circumscribed nodule in the upper outer quadrant is again seen. This has been present on prior examinations. The nodule at the 12 o'clock p osition of the right breast persists. It is well-circumscribed. The nodules in the more medial aspe ct of the right breast do not persist on the additional views. Microcalcifictions: No suspicious pleomorphic-type are seen. Skin Thickening/Nipple Retraction: None. Limited bilateral breast US: Echotexture: Normal appearance of the glandular tissue. Shadowing: No suspicious foci. Cyst: At the 12 o'clock position of the right breast 5 cm from the nipple there is a well-circumscrib ed cyst measuring 0.7 x 0.5 x 0.8 cm. This would correspond to the mammographic abnormality. Solid lesions: There are few well-circumscribed nodule seen in the left breast in the upper outer adilson drant. Any of these would correspond to the finding seen on the mammogram. The mammographic finding has not changed compared to prior examinations. Ductal dilation: None. IMPRESSION: 1. No evidence of malignancy is noted. 2. Unless there is more urgent need, follow-up screening mammography is recommended, as per [place] [employer] guidelines. 3. The findings were discussed with the patient on the date of the examination. BI-RADS Category 2 - Benign Findings Breast Density - Category C - Heterogeneously dense Breast density Category C or D implies that the patient has dense breast tissue. Dense breast tissue can make it harder to find cancer on a mammogram. Dense breast tissue is also associated with an incr eased risk of breast cancer. This information about the result of the mammogram report was provided to the patient to raise their awareness. Use this report when you speak with the patient about their risks for breast cancer, which includes their family history. At that time, you may recommend additional screening tests (Ultrasoun d or MRI) as these tests may add significant information. A negative radiographic report should not delay biopsy if a dominant or clinically suspicious mass is present. Up to ten percent of cancers are not identified on mammography. A negative report may reinforce clinical impression. Adenosis and dense breasts may obscure an underlying neoplasm. False positive reports average 6 to 10%. Patient will receive a letter notifying them of these results.
== END 2024-05-09 01:57 ==
PROVIDERS: PCP Nurse Practitioner Family; Visit Provider Nurse Practitioner Family
DX: Z12.31 Encounter for screening mammogram for malignant neoplasm of breast (principal); R92.8 Other abnormal and inconclusive findings on diagnostic imaging of breast
CPT/HCPCS: 76642; 77063; 77067

== ENCOUNTER → 2025-07-17 00:45 | Outpatient (CLI) | payer BC, SELFPAY ==
--- NOTE | 2025-07-17 14:54 | DI.RAD_ITS ---
Exam(s) XR LUMBAR SPINE COMPLETE EXAM: XR LUMBAR SPINE COMPLETE CLINICAL HISTORY: LOW BACK PAIN, M54.50. TECHNIQUE: 2D digital imaging was performed of the lumbar spine. Five images were obtained. AP, lateral, right oblique, left oblique and L5-S1 spot views were obtained. COMPARISON: CR XR DEXA BONE DENSITY W/WO GUILHERME from 04/24/2022 FINDINGS: BONES: No fracture or destructive lesion. There are endplate osteophytes seen at multiple levels of the lumbar spine, but particularly at L5-S1. There are degenerative changes of the facets at L4-5 and L5-S1. DISKS: There is moderate disc space narrowing at L5-S1. ALIGNMENT: Lumbar spinal alignment is within normal limits. No spondylolysis or spondylolisthesis. SOFT TISSUE: Atherosclerotic calcification is present. There is stool throughout the colon suggesting constipation. IMPRESSION: 1. Kink-ys-vlyoheyq degenerative changes in the lumbar spine. 2. There is no acute fracture or subluxation. 3. Constipation. DATA REPOSITORY: RADIATION DOSE DELIVERED:
== END ==
PROVIDERS: PCP Nurse Practitioner Family; Visit Provider Nurse Practitioner Family
DX: M54.50 Low back pain, unspecified (principal); M51.360 Other intervertebral disc degeneration, lumbar region with discogenic back pain only; K59.00 Constipation, unspecified
CPT/HCPCS: 72110